=== PATIENT | female | born 1940 | race Caucasian/White ===

== ENCOUNTER → 2016-06-18 | Outpatient (REF) | payer OTHER ==
[2016-06-18 13:56] LABS: TOTAL PROTEIN 7.4 GM/DL (6.4-8.2)
[2016-06-20 13:06] LABS: ALBUMIN % 56.8 % (55.8-66.1)
== END ==
LOC: M LAB REF 12:58
PROVIDERS: ATTEND Internal Medicine Medical Oncology
DX: D47.2 Monoclonal gammopathy (principal)

== ENCOUNTER → 2016-07-12 | Outpatient (REF) | payer OTHER ==
[2016-07-12 18:06] LABS: CALCIUM LEVEL 8.8 MG/DL (8.8-10.2); CREATININE FOR GFR 1.49 MG/DL (0.55-1.02); GLOMERULAR FILTRATION RATE 36.5 (>39); POTASSIUM SERUM 4.2 MEQ/L (3.5-5.1)
== END ==
LOC: M LAB REF 16:21
PROVIDERS: ATTEND Family Medicine
DX: I12.9 Hypertensive chronic kidney disease with stage 1 through stage 4 chronic kidney disease, or unspecified chronic kidney disease (principal); N18.9 Chronic kidney disease, unspecified

== ENCOUNTER → 2016-10-07 | Outpatient (CLI) | payer OTHER ==
--- NOTE | 2016-10-07 10:07 | REP ---
Clinical: Hypothyroidism . Comparison: None . Technique: PA and lateral. Findings: The mediastinum and cardiac silhouette are normal. The lung castillo are clear and without acute consolidation, effusion, or pneumothorax. The skeletal structures are intact and normal. Impression: 1. No acute cardiopulmonary process. Signed by Raul Tena MD 10/07/2016 09:59 A
[2016-10-07 10:09] LABS: CREATININE FOR GFR 1.61 MG/DL (0.55-1.02); GLOMERULAR FILTRATION RATE 33.4 (>39); POTASSIUM SERUM 4.4 MEQ/L (3.5-5.1)
--- NOTE | 2016-10-07 13:49 | ECGEPIP ---
Stationary ECG Study [facility] Test Date: 2016-10-07 Pat Name: JOSE PEARL Department: Room: - Gender: F [employer] Operator: TEOFILO : [id number] Requested By: ANIVAL White Order Number: [id number] Reading MD: Claudio Denis Measurements Intervals Tyler Rate: 68 P: 42 UT: 172 QRS: -12 QRSD: 94 T: 119 QT: 404 QTc: 432 Interpretive Statements SINUS RHYTHM ST DEVIATION AND MODERATE T-WAVE ABNORMALITY, CONSIDER LATERAL ISCHEMIA No prior tracing for comparison Clinical correlation advised. Rule out acute myocardial ischemia. Electronically Signed On 10-07-2016 13:49:41 EDT by Claudio Denis
== END ==
LOC: M LAB 09:26
PROVIDERS: ATTEND Ophthalmology
DX: H25.12 Age-related nuclear cataract, left eye (principal); E11.9 Type 2 diabetes mellitus without complications; E03.9 Hypothyroidism, unspecified; R94.31 Abnormal electrocardiogram [ECG] [EKG]

== ENCOUNTER → 2017-04-16 | Outpatient (REF) | payer OTHER ==
[2017-04-16 19:56] LABS: BASO % 0.5 % (0.0-1.0); EOS # 0.2 10^3/uL (0.0-0.50); EOS % 2.8 % (0.0-3.0); IMMATURE GRANULOCYTE % 0.9 % (0-0); LYMPH # 1.4 10^3/uL (1.5-4.5); LYMPH % 18.2 % (24.0-44.0); MEAN CORPUSCULAR HEMOGLOBIN 28.9 pg (27.0-33.0); MEAN CORPUSCULAR HGB CONC 32.4 g/dl (32.0-36.5); MEAN CORPUSCULAR VOLUME 89.3 fl (80.0-96.0); MONO # 0.5 10^3/uL (0.0-0.8); MONO % 6.8 % (0.0-5.0); NEUTROPHILS # 5.6 10^3/uL (1.8-7.7); NEUTROPHILS % 70.8 % (36.0-66.0); PLATELET COUNT, AUTOMATED 280 10^3/uL (150-450); RED CELL DISTRIBUTION WIDTH 12.9 % (11.5-14.5); WHITE BLOOD COUNT 7.9 10^3/uL (4.0-10.0)
[2017-04-16 20:27] LABS: FOLATE 20.4 NG/ML
[2017-04-16 20:29] LABS: PERCENT SATURATION 22.2 % (13.2-45.0)
== END ==
LOC: M LAB REF 17:58
PROVIDERS: ATTEND Family Medicine
DX: E11.29 Type 2 diabetes mellitus with other diabetic kidney complication (principal); D50.9 Iron deficiency anemia, unspecified; E03.9 Hypothyroidism, unspecified

== ENCOUNTER → 2017-06-17 | Outpatient (REF) | payer OTHER ==
[2017-06-17 14:33] LABS: IMMUNOGLOBULIN G 920 MG/DL (681-1648); IMMUNOGLOBULIN M 113 MG/DL (40-230); TOTAL PROTEIN 7.2 GM/DL (6.4-8.2)
[2017-06-19 00:06] LABS: FREE KAPPA LIGHT CHAINS SERUM 31.2 mg/L (3.3-19.4); FREE LAMBDA LIGHT CHAINS SERUM 30.4 mg/L (5.7-26.3); KAPPA/LAMBDA RATIO SERUM 1.03 (0.26-1.65)
[2017-06-19 11:23] LABS: ALBUMIN 4.05 GM/DL (3.29-5.55); ALBUMIN % 56.2 % (55.8-66.1); ALPHA-1-GLOBULIN % 4.9 % (2.9-4.9); ALPHA-1-GLOBULINS 0.35 GM/DL (0.17-0.41); ALPHA-2-GLOBULINS 0.84 GM/DL (0.42-0.99); ALPHA-2-GLOBULINS % 11.7 % (7.1-11.8); BETA-1-GLOBULINS 0.52 GM/DL (0.28-0.60); BETA-1-GLOBULINS % 7.2 % (4.7-7.2); BETA-2-GLOBULINS 0.43 GM/DL (0.19-0.55); GAMMA GLOBULINS 1.01 GM/DL (0.65-1.58)
== END ==
LOC: M LAB REF 13:20
DX: D47.2 Monoclonal gammopathy (principal)
CPT/HCPCS: 84165

== ENCOUNTER 2017-07-03 09:50 | Day surgery (SDC) | payer OTHER ==
[2017-07-03] MEDS: NS 1,000 ML IV (10:00)
[2017-07-03] MEDS ORDERED: DEXTROSE 50% 50 ML SYRINGE As Ordered (10:27)
[2017-07-03 10:36] LABS: BEDSIDE GLUCOSE 51 MG/DL (83-110)
[2017-07-03] MEDS ORDERED: PROPOFOL 200 MG/20 ML VIAL As Ordered ×3 (10:36→11:19)
[2017-07-03] MEDS ORDERED: LIDOCAINE 2% INJ 100 MG/5 ML SDV (FOR ANES.) As Ordered (10:36)
[2017-07-03] MEDS ORDERED: DEXTROSE 50% 50 ML SYRINGE IV (11:00)
[2017-07-03 11:11] LABS: BEDSIDE GLUCOSE 133 MG/DL (83-110)
== END 2017-07-03 12:24 | disposition home or self-care (01) ==
LOC: M OPP 09:50
DX: K62.5 Hemorrhage of anus and rectum (principal); K64.2 Third degree hemorrhoids; K64.1 Second degree hemorrhoids; K64.4 Residual hemorrhoidal skin tags; I12.9 Hypertensive chronic kidney disease with stage 1 through stage 4 chronic kidney disease, or unspecified chronic kidney disease; E78.5 Hyperlipidemia, unspecified; E10.9 Type 1 diabetes mellitus without complications; E03.9 Hypothyroidism, unspecified; R12 Heartburn; K21.9 Gastro-esophageal reflux disease without esophagitis; D64.9 Anemia, unspecified; M19.90 Unspecified osteoarthritis, unspecified site; M54.9 Dorsalgia, unspecified; R06.83 Snoring; N18.4 Chronic kidney disease, stage 4 (severe); Z87.19 Personal history of other diseases of the digestive system; Z87.891 Personal history of nicotine dependence; Z79.82 Long term (current) use of aspirin; Z79.899 Other long term (current) drug therapy; Z80.8 Family history of malignant neoplasm of other organs or systems
CPT/HCPCS: 45378

== ENCOUNTER → 2017-07-23 | Outpatient (REF) | payer OTHER ==
[2017-07-23 14:52] LABS: FERRITIN 52 NG/ML (8-252); IRON (FE) 107 UG/DL (50-170); PERCENT SATURATION 25.7 % (13.2-45.0); TOTAL IRON BINDING CAPACITY 417 UG/DL (250-450)
== END ==
LOC: M LAB REF 13:37
DX: D47.2 Monoclonal gammopathy (principal); Z79.899 Other long term (current) drug therapy; Z51.81 Encounter for therapeutic drug level monitoring; K62.5 Hemorrhage of anus and rectum; D64.9 Anemia, unspecified
CPT/HCPCS: 83550

== ENCOUNTER → 2018-08-10 | Outpatient (CLI) | payer MEDICARE ==
[~2018-08-10] MED LIST: ACE65ERTAB PO; AMLO5TAB6 PO; BASA100I; BAYE81TA10 PO; GABA-845 PO; HYDR25TAB PO; INSUH10VL SC; IRON65TA PO; LEVO10VL PO; LISI-538 PO; MULT1TAB10 PO; NOVOINJ3 SUBQ; OMEP20CA3 PO; PRAV20TA2 PO; SYNT100T PO; TOUJ1.2I SC; VITA100067 PO; VITATAB21 PO
--- NOTE | 2018-08-10 14:42 | REP ---
SKELETAL SURVEY: 16 views. HISTORY: Progressive SFLC's. Abnormal serum electrophoresis. Comparison study is from November 02, 2008. FINDINGS: The maxilla is edentulous. No bony calvarial lytic lesion is appreciated. There are degenerative spondylosis changes in the cervical spine, most pronounced at C5-6 and C6-7. 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 No bony destructive rib lesion is seen. There are degenerative disc changes in the thoracic spine and lumbar spine. There are surgical clips in the left pelvis. No focal lytic lesion is seen in the pelvis. No humeral or femoral lytic lesion is appreciated. IMPRESSION: Negative skeletal survey radiographs. Electronically Signed by Tony Li MD 08/10/2018 02:51 P
== END ==
LOC: M RAD 11:56
PROVIDERS: ATTEND Nurse Practitioner Family
DX: Z13.828 Encounter for screening for other musculoskeletal disorder (principal); M47.812 Spondylosis without myelopathy or radiculopathy, cervical region

== ENCOUNTER → 2018-08-10 | Outpatient (REF) | payer MEDICARE ==
[2018-08-10 13:02] LABS: TOTAL PROTEIN,RANDOM URINE 8.1 MG/DL (0.0-12.0); URINE TOTAL PROTEIN 8.1 MG/DL (0-12)
[2018-08-13 13:41] LABS: UPEP INTERPRETATION NO M-SPIKE NOTED; URINE VOLUME 1500 ML
== END ==
LOC: M LAB REF 12:11
PROVIDERS: ATTEND Nurse Practitioner Family
DX: Z12.2 Encounter for screening for malignant neoplasm of respiratory organs (principal)

== ENCOUNTER → 2018-11-30 | Outpatient (CLI) | payer MEDICARE ==
[~2018-11-30] MED LIST changes: +ARTH650T17 PO; +CHOL100029 PO; +MULTCAP PO; +OMEP1CAP73 PO; -OMEP20CA3 PO; +[UNRECOGNIZED DRUG - CODE] PO
[2018-11-30 12:36] LABS: RUBELLA IgG QUALITATIVE IMMUNE (IMMUNE)
== END ==
LOC: M LAB 11:03
PROVIDERS: ATTEND Family Medicine
DX: Z00.00 Encounter for general adult medical examination without abnormal findings (principal)

== ENCOUNTER → 2018-12-18 | Outpatient (CLI) | payer MEDICARE ==
[~2018-12-18] MED LIST changes: -CHOL100029 PO; -MULTCAP PO; -OMEP1CAP73 PO; +OMEP20CA4 PO; -[UNRECOGNIZED DRUG - CODE] PO
== END ==
LOC: M LAB 14:33
PROVIDERS: ATTEND Family Medicine
DX: Z00.00 Encounter for general adult medical examination without abnormal findings (principal)

== ENCOUNTER → 2019-06-04 | Outpatient (CLI) | payer MEDICARE ==
[~2019-06-04] MED LIST changes: +CHOL100029 PO; +MULTCAP PO; +OMEP1CAP73 PO; -OMEP20CA4 PO; +ROBA750T4 PO; +[UNRECOGNIZED DRUG - CODE] PO
--- NOTE | 2019-06-04 12:22 | REP ---
INDICATION: Pain PROCEDURE: Plain film study of the lumbar spine includes AP lateral and oblique views. COMPARISON STUDIES: No prior similar studies FINDINGS: Degenerative disc disease is more progressed at the L3-4 and L4-5 levels. There is a slight anterolisthesis of L3 over L4. There is a more progressed degenerative disc disease at L4-5 with loss of disc height and endplate changes. No evidence of fracture. There is heavy atherosclerotic calcification of the descending arterial vasculature. There are scattered surgical clips seen in the pelvis. CONCLUSION: No acute findings. Degenerative changes are focal at L4-5 and L5 S1 level. At L5 S1 absence of disc and endplate changes noted. Electronically Signed by Grover Dixon MD 06/04/2019 12:14 P
== END ==
LOC: M WUC 11:47
PROVIDERS: ATTEND Physician Assistant
DX: M51.36 Other intervertebral disc degeneration, lumbar region (principal); M51.37 Other intervertebral disc degeneration, lumbosacral region; M54.5 Low back pain

== ENCOUNTER 2019-06-06 09:11 | Emergency (ER) | payer MEDICARE ==
[~2019-06-06] VITALS: Ht 152.4 cm; Wt 65.5 kg
[~2019-06-06 09:11] MED LIST changes: -ROBA750T4 PO
[2019-06-06] MEDS ORDERED: PERCOCET 5MG/325MG TAB PO ONE (10:00)
[2019-06-06] MEDS ORDERED: LIDOCAINE 5% (LIDODERM) PATCH TD ONE (10:00)
[2019-06-06 10:25] LABS: BASO % 0.3 % (0.0-1.0); EOS % 0.3 % (0.0-3.0); HEMATOCRIT 46.3 % (36.0-47.0); HEMOGLOBIN 15.4 g/dl (12.0-15.5); LYMPH # 1.1 10^3/uL (1.5-5.0); LYMPH % 9.3 % (24.0-44.0); MEAN CORPUSCULAR HEMOGLOBIN 28.5 pg (27.0-33.0); MEAN CORPUSCULAR HGB CONC 33.3 g/dl (32.0-36.5); MEAN CORPUSCULAR VOLUME 85.6 fl (80.0-96.0); MONO # 0.5 10^3/uL (0.0-0.8); NEUTROPHILS # 10.2 10^3/uL (1.5-8.5); NEUTROPHILS % 85.8 % (36.0-66.0); PLATELET COUNT, AUTOMATED 256 10^3/uL (150-450); RED BLOOD COUNT 5.41 10^6/uL (4.00-5.40); WHITE BLOOD COUNT 11.9 10^3/uL (4.0-10.0)
[2019-06-06 10:54] LABS: ALBUMIN 3.8 GM/DL (3.2-5.2); ALT/SGPT 11 U/L (12-78); BILIRUBIN,DIRECT 0.3 MG/DL (0.0-0.2); BILIRUBIN,TOTAL 1.2 MG/DL (0.2-1.0); C REACTIVE PROTEIN QUANTITATIV < 0.30 MG/DL (0.00-0.30); TOTAL PROTEIN 8.1 GM/DL (6.4-8.2)
[2019-06-06 11:12] LABS: ERYTHROCYTE SEDIMENTATION RATE 23 mm/hr (0-30)
[2019-06-06] MEDS ORDERED: NS 1,000 ML IV ONE (12:00)
[2019-06-06] MEDS ORDERED: ONDANSETRON 4MG/2ML VIAL (J2405) IV ONE (12:15)
[2019-06-06] MEDS ORDERED: MORPHINE 4 MG/ML 1ML VIAL/SYRINGE (J2270) IV ONE (12:15)
[2019-06-06] MEDS ORDERED: diazePAM 10 MG TAB PO ONE (13:15)
--- NOTE | 2019-06-06 13:35 | REP ---
MRI LUMBAR SPINE WITHOUT CONTRAST: HISTORY: Weakness and numbness. Severe back pain. Sudden onset. COMPARISON: Radiographs June 04, 2019. No comparison lumbar spine MR. TECHNIQUE: Sagittal and axial T1- and T2-weighted scans are acquired in the usual fashion with and without fat saturation. Sequences include spin echo, turbo spin-echo, and STIR imaging sequences. MRI FINDINGS: There is straightening of the normal lumbar lordosis. Lumbar vertebral body heights are preserved. There is no evidence to suggest recent fracture. There are diffuse degenerative disc disease changes most pronounced at L3-4 and L4-5. The tip of the conus medullaris is normal in position and appearance at L1-L2. No significant extraspinal abnormality is observed. Normal caliber aorta. Axial and sagittal images taken at L1-L2 show no significant abnormality. At L2-L3, there is a fairly large left posterior and left foraminal disc protrusion. This compresses the left third lumbar root. It indents the left lateral and left ventral margin of the thecal sac. This disc protrusion measures 11 mm in right to left dimension by 7 mm in anteroposterior span. No central canal stenosis is seen. The right neural foramen is unremarkable. At L4-L5, there is diffuse posterior disc bulging with a small left central disc protrusion extending cranially. There is posterior osteophytic ridging, which combined with ligamentum flavum and facet hypertrophy, produce moderate central canal stenosis at L3-4. There is a 2-3 mm degenerative L3-4 spondylolisthesis due to degenerative disc and facet disease. The midline AP dimension of the thecal sac at L3-4 is 7 mm. There is right-sided neural foraminal narrowing at L3-4 due to disc bulging and facet hypertrophy. At L4-L5, there is similar moderate central canal stenosis due to diffuse disc bulging and osteophytic ridging along with ligamentum flavum and facet hypertrophy. Midline AP dimension of the thecal sac at L4-5 measures only 5.5 mm. There is bilateral neural foraminal narrowing at L4-5 due to facet hypertrophy and disc bulging. At L5-S1, there is moderate bilateral facet hypertrophy and mild diffuse disc bulging. Mild bilateral neural foraminal narrowing is seen due to facet hypertrophy and disc bulging. IMPRESSION: There are degenerative spondylosis changes diffusely. There is central canal stenosis and multilevel neural foraminal narrowing on a degenerative basis at L3-4 and L4-5. There is neural foraminal narrowing at L5-S1 as well. There is a fairly large left foraminal disc protrusion at L2-3. Electronically Signed by Tony Li MD 06/06/2019 02:31 P
[2019-06-06 14:02] VITALS: BP 133/62
[2019-06-06] MEDS ORDERED: ACE65ERTAB PO (14:30)
[2019-06-06] MEDS ORDERED: ROBA750T4 PO (14:30)
[2019-06-06] MEDS ORDERED: **NOTE PATIENT COMMENT** MISC XX SCH (21:00)
--- NOTE | 2019-06-09 14:36 | ED PDOC ---
Post-Departure Follow-Up dr delgado faxed formal report of mri ls spine for fu Jessica Foster MD Jun 09, 2019 14:36
== END 2019-06-06 14:45 | disposition home or self-care (01) ==
LOC: M ED 09:11
DX: M51.27 Other intervertebral disc displacement, lumbosacral region (principal); M47.816 Spondylosis without myelopathy or radiculopathy, lumbar region; E11.9 Type 2 diabetes mellitus without complications; I12.9 Hypertensive chronic kidney disease with stage 1 through stage 4 chronic kidney disease, or unspecified chronic kidney disease; N18.3 Chronic kidney disease, stage 3 (moderate); E03.9 Hypothyroidism, unspecified; K21.9 Gastro-esophageal reflux disease without esophagitis; M19.90 Unspecified osteoarthritis, unspecified site; Z79.899 Other long term (current) drug therapy; Z79.890 Hormone replacement therapy; Z79.82 Long term (current) use of aspirin; Z79.4 Long term (current) use of insulin; Z88.8 Allergy status to other drugs, medicaments and biological substances
CPT/HCPCS: 72148; 80047; 80076; 83605; 85025; 85652; 86140; 96361; 96374; 96375; 99284; J2270; J2405

== ENCOUNTER → 2019-08-04 | Outpatient (REF) | payer MEDICARE ==
[~2019-08-04] MED LIST changes: +ROBA750T4 PO
[2019-08-04 12:36] LABS: ALBUMIN 3.4 GM/DL (3.2-5.2); BILIRUBIN,TOTAL 0.8 MG/DL (0.2-1.0); CALCIUM LEVEL 9.5 MG/DL (8.8-10.2); CHOLESTEROL RISK RATIO 2.551 (<5); CREATININE FOR GFR 1.38 MG/DL (0.55-1.30); FREE T4 1.08 NG/DL (0.76-1.46); GLOMERULAR FILTRATION RATE 39.6 (>39); POTASSIUM SERUM 4.1 MEQ/L (3.5-5.1); THYROID STIMULATING HORMONE 2.99 uIU/ML (0.358-3.740)
[2019-08-04 12:52] LABS: TOTAL 25(OH) VITAMIN D 60.5 NG/ML (30.0-100.0)
[2019-08-04 13:22] LABS: MAU/CREAT RATIO 241.8 MCG/MG (0.0-30.0)
== END ==
LOC: M SFHCLERA 08:55
PROVIDERS: ATTEND Nurse Practitioner Family
DX: I12.9 Hypertensive chronic kidney disease with stage 1 through stage 4 chronic kidney disease, or unspecified chronic kidney disease (principal); E03.9 Hypothyroidism, unspecified; E78.2 Mixed hyperlipidemia; M51.36 Other intervertebral disc degeneration, lumbar region; Z79.82 Long term (current) use of aspirin; Z79.899 Other long term (current) drug therapy

== ENCOUNTER → 2019-11-24 | Outpatient (CLI) | payer MEDICARE | LOC: M CARPUL 12:50 | PROVIDERS: ATTEND Nurse Practitioner Family | DX: H34.231 Retinal artery branch occlusion, right eye (principal) ==

== ENCOUNTER → 2019-11-26 | Outpatient (CLI) | payer MEDICARE ==
[~2019-11-26] MED LIST changes: +AMLO1TAB24 PO; -AMLO5TAB6 PO; +[UNRECOGNIZED DRUG - CODE] PO; -[UNRECOGNIZED DRUG - CODE] PO
--- NOTE | 2019-11-27 13:52 | REP ---
REASON: Retinal disease. RIGHT LEFT CCA systolic 98.6 cm/s 112.4 cm/s CCA diastolic 12.0 cm/s 21.2 cm/s ICA systolic 111.4 cm/s 115.1 cm/s ICA diastolic 20.7cm/s 22.9 cm/s ICA/CCA ratio 1.13 1.02 Echogenic material is seen along the carotid arterial carl, some of which casts an acoustic shadow, consistent with calcific deposition. IMPRESSION: According to the NASCET Consensus Criteria, there is less than 50% stenosis of the internal carotid artery bilaterally. This is secondary to both calcified and noncalcified atheromatous plaque formation. Electronically Signed by Star Moya DO 11/28/2019 08:25 A
== END ==
LOC: M RAD 15:24
PROVIDERS: ATTEND Nurse Practitioner Family
DX: H34.231 Retinal artery branch occlusion, right eye (principal); R09.89 Other specified symptoms and signs involving the circulatory and respiratory systems

== ENCOUNTER → 2019-12-20 | Outpatient (REF) | payer MEDICARE ==
[2020-01-31 12:00] LABS: FREE T4 1.22 NG/DL (0.76-1.46); THYROID STIMULATING HORMONE 4.18 uIU/ML (0.358-3.740); TOTAL 25(OH) VITAMIN D 40.2 NG/ML (30.0-100.0)
== END ==
LOC: M SFHCPLAZ 12:57
PROVIDERS: ATTEND Nurse Practitioner Family
DX: E03.9 Hypothyroidism, unspecified (principal); R53.83 Other fatigue; Z79.899 Other long term (current) drug therapy

== ENCOUNTER → 2020-06-22 | Outpatient (REF) | payer MEDICARE ==
[~2020-06-22] MED LIST changes: +HYDR-3490 PO; -HYDR25TAB PO; -LISI-538 PO; +LISI20TA33 PO
== END ==
LOC: M LAB REF 16:51
PROVIDERS: ATTEND Nurse Practitioner Family
DX: R80.9 Proteinuria, unspecified (principal)

== ENCOUNTER → 2020-07-17 | Outpatient (REF) | payer MEDICARE ==
[2020-07-17 14:38] LABS: BILIRUBIN,TOTAL 0.7 MG/DL (0.2-1.0); CALCIUM LEVEL 9.6 MG/DL (8.8-10.2); CHOLESTEROL RISK RATIO 2.3 (<5); CREATININE FOR GFR 1.44 MG/DL (0.55-1.30); FREE T4 1.24 NG/DL (0.76-1.46); GLOMERULAR FILTRATION RATE 37.6 (>39); POTASSIUM SERUM 4.7 MEQ/L (3.5-5.1); THYROID STIMULATING HORMONE 1.54 uIU/ML (0.358-3.740); TOTAL PROTEIN 7.6 GM/DL (6.4-8.2)
== END ==
LOC: M PLALAB 09:59
PROVIDERS: ATTEND Nurse Practitioner Family
DX: I12.9 Hypertensive chronic kidney disease with stage 1 through stage 4 chronic kidney disease, or unspecified chronic kidney disease (principal); E03.9 Hypothyroidism, unspecified; E78.2 Mixed hyperlipidemia

== ENCOUNTER → 2021-02-20 | Outpatient (CLI) | payer MEDICARE ==
[~2021-02-20] MED LIST changes: +GABA-283 PO; -GABA-845 PO
[2021-02-20 17:04] LABS: CALCIUM LEVEL 9.7 MG/DL (8.8-10.2); CREATININE FOR GFR 1.37 MG/DL (0.55-1.30); FREE T4 1.24 NG/DL (0.76-1.46); GLOMERULAR FILTRATION RATE 39.7 (>39); POTASSIUM SERUM 4.8 MEQ/L (3.5-5.1); THYROID STIMULATING HORMONE 0.899 uIU/ML (0.358-3.740)
== END ==
LOC: M PLALAB 10:37
PROVIDERS: ATTEND Nurse Practitioner Family
DX: E03.9 Hypothyroidism, unspecified (principal); I12.9 Hypertensive chronic kidney disease with stage 1 through stage 4 chronic kidney disease, or unspecified chronic kidney disease

== ENCOUNTER → 2021-03-29 | Outpatient (REF) | payer MEDICARE ==
[2021-03-29 18:44] LABS: MAU/CREAT RATIO 173.7 MCG/MG (0.0-30.0)
== END ==
LOC: M LAB REF 17:26
PROVIDERS: ATTEND Internal Medicine Endocrinology, Diabetes & Metabolism
DX: E11.22 Type 2 diabetes mellitus with diabetic chronic kidney disease (principal)

== ENCOUNTER → 2021-07-03 | Outpatient (REF) | payer MEDICARE | LOC: M SFHCPLAZ 17:06 | PROVIDERS: ATTEND Nurse Practitioner Adult Health | DX: R30.0 Dysuria (principal) ==

== ENCOUNTER → 2021-09-17 | Outpatient (CLI) | payer MEDICARE ==
[2021-09-17 11:17] LABS: ALBUMIN 3.6 GM/DL (3.2-5.2); CALCIUM LEVEL 9.4 MG/DL (8.8-10.2); CREATININE FOR GFR 1.65 MG/DL (0.55-1.30); THYROID STIMULATING HORMONE 1.87 uIU/ML (0.358-3.740); TOTAL PROTEIN 6.9 GM/DL (6.4-8.2)
[2021-09-17 12:00] LABS: HEMOGLOBIN A1c 6.5 %
== END ==
LOC: M PLALAB 08:13
PROVIDERS: ATTEND Nurse Practitioner Adult Health
DX: I12.9 Hypertensive chronic kidney disease with stage 1 through stage 4 chronic kidney disease, or unspecified chronic kidney disease (principal); E11.9 Type 2 diabetes mellitus without complications; E03.9 Hypothyroidism, unspecified

== ENCOUNTER → 2022-06-10 | Outpatient (CLI) | payer MEDICARE, OTHER, SELFPAY ==
[~2022-06-10] MED LIST changes: +MULT-90 PO; +ULTR5TAB PO; +VITA200031 PO
[2022-06-10 16:02] LABS: HEMOGLOBIN A1c 6.8 % (4.0-6.0)
[2022-06-10 16:12] LABS: CREATININE, URINE 49.4 MG/DL
[2022-06-10 16:14] LABS: MAU/CREAT RATIO 212.5 MCG/MG (0.0-30.0)
[2022-06-10 16:21] LABS: THYROID STIMULATING HORMONE 2.92 uIU/ML (0.55-4.78); TOTAL 25(OH) VITAMIN D 47.9 NG/ML (20.0-100.0)
[2022-06-10 16:22] LABS: ALBUMIN 3.9 G/DL (3.2-5.2); BILIRUBIN,TOTAL 0.9 MG/DL (0.3-1.2); CALCIUM LEVEL 9.7 MG/DL (8.3-10.6); CHOLESTEROL RISK RATIO 2.18 (<5); CREATININE FOR GFR 1.51 MG/DL (0.55-1.30); GLOMERULAR FILTRATION RATE 35.4 (>39); HDL CHOLESTEROL 56.2 MG/DL (>40); LDL CHOLESTEROL 48.4 MG/DL (<100); POTASSIUM SERUM 4.4 MMOL/L (3.5-5.1); TOTAL PROTEIN 7.2 G/DL (5.7-8.2)
== END ==
LOC: M PLALAB 10:32
PROVIDERS: ATTEND Nurse Practitioner Adult Health
DX: I12.9 Hypertensive chronic kidney disease with stage 1 through stage 4 chronic kidney disease, or unspecified chronic kidney disease (principal); R19.8 Other specified symptoms and signs involving the digestive system and abdomen; E78.2 Mixed hyperlipidemia; E03.9 Hypothyroidism, unspecified; E55.9 Vitamin D deficiency, unspecified; E11.9 Type 2 diabetes mellitus without complications; Z79.899 Other long term (current) drug therapy

== ENCOUNTER → 2022-12-12 | Outpatient (CLI) | payer MEDICARE | LOC: M PLALAB 10:50 | PROVIDERS: ATTEND Internal Medicine Hematology | DX: Z01.818 Encounter for other preprocedural examination (principal); I12.9 Hypertensive chronic kidney disease with stage 1 through stage 4 chronic kidney disease, or unspecified chronic kidney disease ==

== ENCOUNTER → 2023-03-11 | Outpatient (CLI) | payer MEDICARE ==
[~2023-03-11] MED LIST changes: -GABA-283 PO; +GABA-284 PO
== END ==
LOC: M RAD 11:38
PROVIDERS: ATTEND Nurse Practitioner
DX: M54.59 Other low back pain (principal)

== ENCOUNTER → 2024-03-17 | Outpatient (CLI) | payer MEDICARE | LOC: M PLAIMG 13:05 | PROVIDERS: ATTEND Nurse Practitioner Adult Health | DX: K59.00 Constipation, unspecified (principal) ==

== ENCOUNTER → 2024-03-18 | Outpatient (CLI) | payer MEDICARE ==
[2024-03-18 15:25] LABS: ALBUMIN 3.9 G/DL (3.2-5.2); BILIRUBIN,TOTAL 0.8 MG/DL (0.3-1.2); CALCIUM LEVEL 10.4 MG/DL (8.3-10.6); CHOLESTEROL RISK RATIO 1.84 (<5); CREATININE FOR GFR 1.75 MG/DL (0.55-1.30); GLOMERULAR FILTRATION RATE 29.7 (>32); HDL CHOLESTEROL 67.6 MG/DL (>40); LDL CHOLESTEROL 40.2 MG/DL (<100); NON-HDL-C 57.4 MG/DL; POTASSIUM SERUM 5.4 MMOL/L (3.5-5.1); TOTAL PROTEIN 7.7 G/DL (5.7-8.2)
[2024-03-18 15:31] LABS: HEMOGLOBIN A1c 6.7 % (4.0-6.0)
[2024-03-18 16:00] LABS: THYROID STIMULATING HORMONE 3.411 uIU/ML (0.55-4.78)
[2024-03-18 16:01] LABS: FREE T4 1.1 NG/DL (0.89-1.76)
== END ==
LOC: M PLALAB 12:20
PROVIDERS: ATTEND Nurse Practitioner Adult Health
DX: E03.9 Hypothyroidism, unspecified (principal); E11.22 Type 2 diabetes mellitus with diabetic chronic kidney disease; E78.2 Mixed hyperlipidemia; I12.9 Hypertensive chronic kidney disease with stage 1 through stage 4 chronic kidney disease, or unspecified chronic kidney disease

== ENCOUNTER → 2024-03-18 | Outpatient (CLI) | payer MEDICARE | LOC: M RAD 11:04 | PROVIDERS: ATTEND Nurse Practitioner Family | DX: N17.9 Acute kidney failure, unspecified (principal); N28.1 Cyst of kidney, acquired ==

== ENCOUNTER → 2024-03-23 | Outpatient (CLI) | payer MEDICARE ==
[2024-03-23 12:53] LABS: PLATELET COUNT, AUTOMATED 211 10^3/uL (150-450)
[2024-03-23 13:04] LABS: INR 0.89; PARTIAL THROMBOPLASTIN TIME 32.9 SECONDS (24.8-34.2); PROTHROMBIN TIME 12.3 SECONDS (12.5-14.5)
== END ==
LOC: M PLALAB 11:18
PROVIDERS: ATTEND Physician Assistant
DX: Z01.818 Encounter for other preprocedural examination (principal)

== ENCOUNTER → 2024-03-25 | Outpatient (REF) | payer MEDICARE ==
[2024-03-31 13:03] LABS: FREE KAPPA LIGHT CHAINS URINE 7.88 mg/L (<=32.90); FREE LAMBDA LIGHT CHAINS URINE 2.15 mg/L (<=3.79); KAPPA/LAMBDA RATIO URINE 3.67 (<=8.69)
== END ==
LOC: M LAB REF 15:10
PROVIDERS: ATTEND Internal Medicine Medical Oncology
DX: D47.2 Monoclonal gammopathy (principal)

== ENCOUNTER → 2024-04-14 | Outpatient (REF) | payer MEDICARE ==
[2024-04-14 18:42] LABS: FOLATE > 24.0 NG/ML (>5.4); THYROID STIMULATING HORMONE 2.784 uIU/ML (0.55-4.78)
[2024-04-14 18:43] LABS: FREE T4 1.35 NG/DL (0.89-1.76); VITAMIN B12 LEVEL 449 PG/ML (211-911)
== END ==
LOC: M LAB REF 17:44
PROVIDERS: ATTEND Nurse Practitioner Family
DX: E03.9 Hypothyroidism, unspecified (principal); R53.83 Other fatigue

== ENCOUNTER → 2024-04-20 | Outpatient (CLI) | payer MEDICARE | LOC: M RAD 08:35 | PROVIDERS: ATTEND Physical Medicine & Rehabilitation | DX: M51.16 Intervertebral disc disorders with radiculopathy, lumbar region (principal); M47.26 Other spondylosis with radiculopathy, lumbar region; M48.07 Spinal stenosis, lumbosacral region ==

== ENCOUNTER → 2024-06-17 | Outpatient (CLI) | payer MEDICARE ==
[2024-06-17 13:37] LABS: HEMATOCRIT 41.3 % (36.0-47.0); HEMOGLOBIN 13.2 g/dl (12.0-15.5); MEAN CORPUSCULAR HEMOGLOBIN 28.9 pg (27.0-33.0); MEAN CORPUSCULAR VOLUME 90.4 fl (80.0-96.0); PLATELET COUNT, AUTOMATED 313 10^3/uL (150-450); RED BLOOD COUNT 4.57 10^6/uL (4.00-5.40); WHITE BLOOD COUNT 9.6 10^3/uL (4.0-10.0)
[2024-06-17 14:07] LABS: ALBUMIN 3.8 G/DL (3.2-5.2); BILIRUBIN,TOTAL 0.9 MG/DL (0.3-1.2); CALCIUM LEVEL 9.6 MG/DL (8.3-10.6); CREATININE FOR GFR 1.33 MG/DL (0.55-1.30); GLOMERULAR FILTRATION RATE 40.8 (>32); POTASSIUM SERUM 4.7 MMOL/L (3.5-5.1); TOTAL PROTEIN 7.7 G/DL (5.7-8.2)
[2024-06-17 14:08] LABS: FERRITIN 41.5 NG/ML (7.3-270.7)
== END ==
LOC: M PLALAB 11:44
PROVIDERS: ATTEND Nurse Practitioner Adult Health
DX: R05.1 Acute cough (principal); J20.9 Acute bronchitis, unspecified; N18.32 Chronic kidney disease, stage 3b

== ENCOUNTER → 2024-09-14 | Outpatient (REF) | payer MEDICARE | LOC: M SFHCPLAZ 11:36 | PROVIDERS: ATTEND Nurse Practitioner Adult Health | DX: Z53.21 Procedure and treatment not carried out due to patient leaving prior to being seen by health care provider (principal); E11.22 Type 2 diabetes mellitus with diabetic chronic kidney disease; E78.2 Mixed hyperlipidemia; I12.9 Hypertensive chronic kidney disease with stage 1 through stage 4 chronic kidney disease, or unspecified chronic kidney disease; E55.9 Vitamin D deficiency, unspecified ==

== ENCOUNTER → 2025-02-16 | Outpatient (CLI) | payer MEDICARE ==
[~2025-02-16] MED LIST changes: -ACE65ERTAB PO; +ACET-1593 PO; -PRAV20TA2 PO; +PRAV20TA78 PO
== END ==
LOC: M RAD 12:56
PROVIDERS: ATTEND Nurse Practitioner Acute Care
DX: R09.89 Other specified symptoms and signs involving the circulatory and respiratory systems (principal)

== ENCOUNTER → 2025-03-07 | Outpatient (CLI) | payer MEDICARE ==
[2025-03-07 11:22] LABS: ALT/SGPT 18.0 U/L (7.0-40); AST/SGOT 18.0 U/L (<34); CALCIUM LEVEL 9.4 MG/DL (8.3-10.6); CARBON DIOXIDE LEVEL 29.0 MMOL/L (20-31); CHLORIDE LEVEL 107.0 MMOL/L (98-107); CHOLESTEROL LEVEL 130.0 MG/DL (<200); CHOLESTEROL RISK RATIO 2.32 (<5); CREATININE FOR GFR 1.32 MG/DL (0.55-1.30); GLOMERULAR FILTRATION RATE 40.3 (>32); LDL CHOLESTEROL 59.0 MG/DL (<100); MAGNESIUM LEVEL 1.8 MG/DL (1.8-2.4); NON-HDL-C 74.0 MG/DL; POTASSIUM SERUM 4.6 MMOL/L (3.5-5.1); SODIUM LEVEL 147.0 MMOL/L (136-145); TRIGLYCERIDES LEVEL 75.0 MG/DL (<150)
[2025-03-07 11:23] LABS: FREE T4 0.96 NG/DL (0.89-1.76)
[2025-03-07 11:30] LABS: ESTIMATED AVERAGE GLUCOSE 148.0 MG/DL (60-110)
== END ==
LOC: M PLALAB 09:28
PROVIDERS: ATTEND Nurse Practitioner Adult Health
DX: E03.9 Hypothyroidism, unspecified (principal); E11.22 Type 2 diabetes mellitus with diabetic chronic kidney disease; E78.2 Mixed hyperlipidemia; I12.9 Hypertensive chronic kidney disease with stage 1 through stage 4 chronic kidney disease, or unspecified chronic kidney disease; E55.9 Vitamin D deficiency, unspecified